=== PATIENT | male | born 1965 | race Caucasian/White ===

== ENCOUNTER → 2016-12-13 | Outpatient (CLI) | payer BC ==
[2016-12-13 11:59] LABS: EKG EKG PERFORMED
[2016-12-13 12:15] LABS: Basophils # (A) 0.1 k/uL (0-0.2); Basophils % (A) 1 %; CH 29.4; CHCM 33.9; Eosinophils # (A) 0.2 k/uL (0-0.7); Eosinophils % (A) 3 %; HCT 47.2 % (39.0-53.0); HDW 2.46; HGB 15.8 gm/dL (13.0-17.5); Luc # (Auto) 0.08; Luc % (Auto) 1; Lymphocytes # (A) 1.1 k/uL (1.0-4.8); Lymphocytes % (A) 18 %; MCH 29.1 pg (25.0-35.0); MCHC 33.4 g/dL (31.0-37.0); MCV 87.1 fL (80.0-100.0); Mean Platelet Volume 7.5; Monocytes # (A) 0.3 k/uL (0-1.0); Monocytes % (A) 5 %; Neutrophils # (A) 4.2 k/uL (1.3-7.7); Neutrophils % (A) 72 %; RBC 5.42 m/uL (4.30-5.90); RDW 12.9 % (11.5-15.5); WBC 5.9 k/uL (3.8-10.6); WBC (Perox) 6.22
[2016-12-13 12:27] LABS: Anion Gap 9 mmol/L; Carbon Dioxide 27 mmol/L (22-30); Chloride 102 mmol/L (98-107); Potassium 4.2 mmol/L (3.5-5.1); Sodium 138 mmol/L (137-145)
== END | disposition home or self-care (01) ==
LOC: LABWHC1 11:45
PROVIDERS: ATTEND Orthopaedic Surgery
DX: Z01.810 Encounter for preprocedural cardiovascular examination (principal); M23.92 Unspecified internal derangement of left knee
CPT/HCPCS: 80051; 85025; 93005

== ENCOUNTER 2016-12-24 09:22 | Day surgery (SDC) | payer BC ==
[2016-12-23 10:53] VITALS: BMI 28.1
--- NOTE | 2016-12-23 11:21 | HP ---
DATE OF ADMISSION: CHIEF COMPLAINT: Left knee pain. HISTORY OF PRESENT ILLNESS: The patient is a 51-year-old rodriguez who presents with progressive left knee pain after previously injuring it running. He is having pain and mechanical symptoms that limit him. He had a previous injection and has tried medications with only partial temporary relief. PAST MEDICAL HISTORY: Negative. PAST SURGICAL HISTORY: Significant for carpal tunnel release. CURRENT MEDICATIONS: 1. Tylenol. 2. Zyrtec. He denies drug allergies. FAMILY HISTORY: Significant for cancer. SOCIAL HISTORY: Negative for current tobacco or alcohol use. A 16-point review of systems otherwise reviewed and is noncontributory. On examination, the patient is approximately 5 foot 7, 185 pounds of mesomorphic habitus. HEENT exam is nonfocal. Neck is supple. He is nontender about the lumbar spine. He has painless passive motion of the left hip. On examination of his left knee, he is tender about the medial joint line and medial patellar facet. Collaterals are stable, Lissett is negative, Ben's elicits medial pain. Active motion -4 to 140 degrees of flexion. His distal neurovascular exam appears be intact in the left lower extremity. MRI report from 10/21/2016 the left knee shows a posterior medial meniscal tear along with patellofemoral compartment osteoarthrosis. IMPRESSION: 1. Left knee internal derangement with symptomatic medial meniscal tear. 2. Left knee patellofemoral compartment osteoarthrosis. RECOMMENDATIONS: I talked to the patient at length regarding his treatment options. He is having persistent pain and mechanical symptoms despite conservative measures. After a thorough discussion, he opts to proceed with surgery. We will plan to proceed with arthroscopic evaluation with possible partial medial meniscectomy, in addition to possible patellar chondroplasty. Risks and benefits are discussed at length in layman terms. We will likely perform that as an outpatient procedure.
[~2016-12-24 09:22] MED LIST: DEXAMETHASONE SOD PHOSPHATE 10 MG/ML 1 ML VIAL IV ONE; LACTATED RINGERS 1,000 ML IV SCH; MIDAZOLAM 2 MG/2 ML VIAL IV PRN; ONDANSETRON 4 MG/2 ML VIAL IVP ONE; SCOPOLAMINE 1.5MG/72HR PATCH TRANSDERM ONE; ceFAZolin 2 GM in SODIUM CHLORIDE 0.9% 100 ML IVPB ONE
[2016-12-24] MEDS ORDERED: LIDOCAINE 1% 20 ML VIAL (10MG/ML) FOR IV START INTRADERMA ONE (10:41)
[2016-12-24] MEDS ORDERED: LIDOCAINE 1% INJ 10MG/ML (20 ML MDV) ONE (11:14)
[2016-12-24] MEDS ORDERED: MIDAZOLAM 2 MG/2 ML VIAL ONE (11:14)
[2016-12-24] MEDS ORDERED: KETOROLAC 30 MG/ML 1 ML VIAL ONE (11:14)
[2016-12-24] MEDS ORDERED: PROPOFOL 10 MG/ML 20 ML VIAL IV ONE (11:14)
[2016-12-24] MEDS ORDERED: fentaNYL (PF) 50 MCG/ML 2 ML AMP ONE (11:14)
--- NOTE | 2016-12-24 11:58 | P.OP ---
Date of Procedure: 12/24/16 Preoperative Diagnosis: Left knee internal derangement Postoperative Diagnosis: Left knee posterior medial meniscal tear/grade 3 chondral injury femoral trochlea/reactive synovitis of the medial and patellofemoral compartments Procedure(s) Performed: Left knee arthroscopic partial medial meniscectomy/femoral trochlear chondroplasty/partial synovectomy of the medial and patellofemoral compartments Anesthesia: TIMA Surgeon: Naun Morales Estimated Blood Loss (ml): 10 Pathology: none sent Condition: stable Disposition: PACU Indications for Procedure: The patient's a 51-year-old male who presents with progressive left knee pain and mechanical symptoms after previous injury running. He did try conservative measures with persistence of his symptoms. A discussion of the risks and benefits of operative intervention versus continued conservative measures was made with patient. He opted to proceed with surgery. Operative risks to include infection, neurovascular injury, development of blood clots, possible incomplete resolution of symptoms, possible worsening symptoms and need for subsequent procedures was discussed. Informed consent was obtained. Operative Findings: As below Description of Procedure: The patient was brought to the operating room, and after induction of general anesthesia examined the left knee. Collaterals were stable, Lissett was negative, and posterior drawer was negative. The left lower extremity was prepped and draped in a normal fashion. A superior lateral portal was made through a 3 mm skin incision superior and lateral to the patella. This was used for outflow. A lateral portal was made through a 5 mm vertical skin incision lateral to the patellar tendon above the joint line. Diagnostic arthroscopy was performed. A medial portal was made through a similar incision medial to the patellar tendon above the joint line. On inspection of the medial compartment, he was noted have a longitudinal tear involving the posterior horn of the medial meniscus in the white/white junction. This is debrided back to stable base with straight baskets and a motorized shaver. The remaining medial meniscus was stable and intact. Minimal degenerative changes involving the medial compartment articular surface was noted. Reactive synovitis involving the medial compartment was debrided with motorized shaver. On inspection of the notch, the anterior cruciate ligament appeared to be intact. On inspection of the lateral compartment no significant meniscal or articular cartilage pathology was noted. On inspection of the patellofemoral articulation, grade 3/4 chondral changes were noted involving the femoral trochlea. There was a loose chondral fragment debrided with motorized shaver back to stable base. Reactive synovitis involving the patellofemoral articulation was debrided with motorized shaver. The gutters were clear debris. The knee was then thoroughly irrigated. The portals were closed with Steri-Strips. A sterile dressing was applied in addition to a compression stocking. The patient was awoken from general anesthesia and transferred to recovery room in good condition. Blood loss was estimated at 10 mL. No complications were incurred.
[2016-12-24 11:59] VITALS: TEMP 97
[2016-12-24] MEDS: HYDROmorphone 1 MG/ML 1 ML SYRINGE IVP PRN ×2 (12:09→12:17)
[2016-12-24 12:10] VITALS: RESP 16
[2016-12-24] MEDS ORDERED: HYDROcodone/APAP 5-325MG 1 EACH TAB PO ONE (13:34)
[2016-12-24 14:00] VITALS: BP 124/82; PULSE 73
== END 2016-12-24 14:18 | disposition home or self-care (01) ==
LOC: OR 09:22
PROVIDERS: ATTEND Orthopaedic Surgery
DX: S83.242A Other tear of medial meniscus, current injury, left knee, initial encounter (principal); X58.XXXA Exposure to other specified factors, initial encounter; Y93.02 Activity, running; M65.862 Other synovitis and tenosynovitis, left lower leg; M17.12 Unilateral primary osteoarthritis, left knee; M23.92 Unspecified internal derangement of left knee; Z72.0 Tobacco use; Z79.899 Other long term (current) drug therapy
CPT/HCPCS: 29881; J2250; J1100; J0690; J2405; J2001; J3010; J1885; J1170; J2704

== ENCOUNTER → 2017-06-27 | Outpatient (CLI) | payer BC ==
[2017-06-27 19:50] LABS: ALT 34 U/L (21-72); AST 23 U/L (17-59); Alkaline Phosphatase 68 U/L (38-126); Anion Gap 8 mmol/L; Blood Urea Nitrogen 15 mg/dL (9-20); Calcium 9.4 mg/dL (8.4-10.2); Carbon Dioxide 28 mmol/L (22-30); Chloride 104 mmol/L (98-107); Glucose 79 mg/dL (74-99); Non-African American GFR(MDRD) >60 (>60 ml/min/1.73 sqM); Potassium 4.7 mmol/L (3.5-5.1); Sodium 140 mmol/L (137-145); Total Bilirubin 0.5 mg/dL (0.2-1.3); Total Protein 6.5 g/dL (6.3-8.2); Uric Acid 5.5 mg/dL (3.5-8.5)
== END | disposition home or self-care (01) ==
LOC: MMGSC 09:47
PROVIDERS: ATTEND Family Medicine
DX: M10.9 Gout, unspecified (principal)
CPT/HCPCS: 36415; 80053; 84550

== ENCOUNTER → 2019-09-21 | Outpatient (CLI) | payer BC ==
--- NOTE | 2019-09-21 08:08 | MR ---
EXAMINATION TYPE: MR brain wo/w con DATE OF EXAM: 09/21/2019 COMPARISON: NONE HISTORY: Headache TECHNIQUE: Multiplanar, multisequence images of the brain and brainstem is performed without and with IV contras t, utilizing 9 mL intravenous Gadavist . FINDINGS: Diffusion weighted images demonstrate no evidence of a recent infarct or other diffusion ab normality. There is no extra-axial fluid collection or significant white matter signal abnormality. Single nonspecific 2 mm focus posterior right frontal lobe axial image 20 is noted. The ventricular system and cisternal spaces are normal in size and appearance. The brain volume is age appropriate. Midline structures demonstrate normal morphology. The craniocervical junction appears within normal limits. Post contrast images demonstrate no abnormal enhancement. The dural venous sinuses appear pa tent. There is mucous retention cyst or polyp in inferior right maxillary sinus with few additional s cattered smaller mucous retention cysts or polyps throughout the visualized portion of both maxillary sinuses. Mild mucosal thickening bilateral ethmoid sinuses. IMPRESSION: Some chronic paranasal sinus disease otherwise unremarkable study
== END | disposition home or self-care (01) ==
LOC: RADMRIMAIN 07:05
PROVIDERS: ATTEND Family Medicine
DX: R51 Headache (principal); H93.11 Tinnitus, right ear; J32.4 Chronic pansinusitis
CPT/HCPCS: 70553; A9585

== ENCOUNTER → 2020-12-24 | Outpatient (CLI) | payer BC ==
--- NOTE | 2020-12-24 22:12 | MR ---
EXAMINATION TYPE: MR knee RT wo con DATE OF EXAM: 12/24/2020 COMPARISON: Radiographs 12/12/2020. HISTORY: Right knee pain, swelling, and locking for 7 weeks due to skiing incident. TECHNIQUE: Multiplanar, multisequence imaging of the right knee is performed without IV contrast. FINDINGS: MEDIAL MENISCUS: Horizontal oblique tear of the medial meniscus posterior horn and body. LATERAL MENISCUS: Anterior and posterior horns are intact without tear. CRUCIATE LIGAMENTS: Near full-thickness tear of the anterior cruciate ligament at the femoral attachm ent. Posterior cruciate ligament is grossly intact COLLATERAL LIGAMENTS: Partial-thickness tear of the proximal medial collateral ligament. Moderate ten dinosis of the popliteal tendon. Otherwise lateral collateral ligament complex is grossly intact. EXTENSOR MECHANISM: Visualized quadriceps and patellar tendons are intact. EFFUSION: Small knee joint effusion. POPLITEAL CYST: No popliteal/whitman cyst. TRICOMPARTMENT SPACES: Mild to moderate tricompartmental osteoarthritis, most notable of the medial p atellofemoral compartments. CARTILAGE: Moderate to large full-thickness chondral defect overlying the patellofemoral compartment medial facet. Small to moderate sized partial thickness chondral defect overlying the medial compartm ent. No significant chondral defect of the lateral compartment. BONE MARROW SIGNAL: No significant bone marrow abnormality, acute fracture or dislocation. OTHER: Moderate edema in the Hoffa's fat pad. Moderate fluid with multiple small loose bodies within the popliteal bursae. IMPRESSION: Near full-thickness ACL tear at the femoral attachment. Medial meniscus posterior horn and body tear. Partial thickness tear/grade 2 sprain of the proximal MCL. Popliteal bursitis with loose bodies seen. Mild to moderate osteoarthritis. Edema within the Hoffa's fat pad, can be seen with patellar maltracking.
== END | disposition home or self-care (01) ==
LOC: RADMRIMAIN 18:38
PROVIDERS: ATTEND Orthopaedic Surgery
DX: S83.241A Other tear of medial meniscus, current injury, right knee, initial encounter (principal); M17.11 Unilateral primary osteoarthritis, right knee

== ENCOUNTER → 2021-01-08 | Outpatient (CLI) | payer BC ==
[2021-01-08 13:20] LABS: Basophils # (A) 0.1 k/uL (0-0.2); Basophils % (A) 1 %; Eosinophils # (A) 0.1 k/uL (0-0.7); Eosinophils % (A) 3 %; HCT 45.8 % (39.0-53.0); HGB 16.1 gm/dL (13.0-17.5); Lymphocytes # (A) 1.2 k/uL (1.0-4.8); Lymphocytes % (A) 23 %; MCH 29.6 pg (25.0-35.0); MCHC 35.1 g/dL (31.0-37.0); MCV 84.5 fL (80.0-100.0); Mean Platelet Volume 8.4; Monocytes # (A) 0.3 k/uL (0-1.0); Monocytes % (A) 6 %; Neutrophils # (A) 3.4 k/uL (1.3-7.7); Neutrophils % (A) 66 %; Platelet Count 265 k/uL (150-450); RBC 5.42 m/uL (4.30-5.90); RDW 12.2 % (11.5-15.5); WBC 5.2 k/uL (3.8-10.6)
[2021-01-08 13:37] LABS: Potassium 4.2 mmol/L (3.5-5.1)
== END | disposition home or self-care (01) ==
LOC: LABPAT 12:19
PROVIDERS: ATTEND Orthopaedic Surgery
DX: Z01.818 Encounter for other preprocedural examination (principal); M23.91 Unspecified internal derangement of right knee
CPT/HCPCS: 36415; 80051; 85025; 93005

== ENCOUNTER 2021-01-20 09:43 | Day surgery (SDC) | payer BC ==
--- NOTE | 2021-01-19 09:02 | HP ---
HISTORY AND PHYSICAL CHIEF COMPLAINT: Right knee pain. 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 He notes persistent medial pain and giving way. He also notes intermittent locking. He denies previous problems. He notes it limits him daily. PAST MEDICAL HISTORY: Negative. PAST SURGICAL HISTORY: Significant carpal tunnel release and left knee arthroscopy. CURRENT MEDICATIONS: Tylenol and Zyrtec. ALLERGIES: He denies drug allergies. FAMILY HISTORY: Significant for cancer. SOCIAL HISTORY: Negative for current tobacco or alcohol use. REVIEW OF SYSTEMS: Sixteen-point review of systems otherwise reviewed and is noncontributory. PHYSICAL EXAMINATION: On examination, the patient is approximately 5 feet, 7 inches, 190 pounds of mesomorphic habitus. HEENT exam is nonfocal. Neck is supple. He has painless passive motion of the right hip. Straight leg raise is negative. Active motion right knee -6 to 125 degrees of flexion. He has a mild effusion. He is tender about the medial joint line. Collaterals are stable, Lissett's 1+, Ben's is positive. His distal neurovascular exam appears intact in the right lower extremity. MRI report from 12/21/2020 shows evidence of a posterior medial meniscal tear along with MCL sprain, medial patellar chondral defect along with an ACL sprain. IMPRESSION: 1. Internal derangement, right knee with symptomatic medial meniscal tear. 2. Right knee ACL/MCL sprain. 3. Right knee medial patellar chondral injury. RECOMMENDATIONS: I talked to the patient at length regarding his condition and treatment options. At this point he is quite symptomatic and limited because of pain and mechanical symptoms after this acute injury. After thorough discussion, he opts to proceed with surgery. We will plan to proceed with arthroscopic evaluation with possible partial medial meniscectomy in addition to possible patellar chondroplasty. We will evaluate the integrity of ACL, however, not a plan on any acute reconstruction at this point. We will likely perform this as an outpatient procedure. Risks and benefits were discussed at length in layman's terms. MMODL / IJN: [id number] /
[2021-01-19 09:07] VITALS: BMI 28.8
[~2021-01-20 09:43] MED LIST changes: -DEXAMETHASONE SOD PHOSPHATE 10 MG/ML 1 ML VIAL IV ONE; +HYDROmorphone 0.5 MG/0.5 ML SYRINGE IVP PRN; -MIDAZOLAM 2 MG/2 ML VIAL IV PRN; -SCOPOLAMINE 1.5MG/72HR PATCH TRANSDERM ONE; -ceFAZolin 2 GM in SODIUM CHLORIDE 0.9% 100 ML IVPB ONE; +fentaNYL (PF) 50 MCG/ML 2 ML AMP IV PRN
[2021-01-20] MEDS ORDERED: DEXAMETHASONE SOD PHOSPHATE 4 MG/ML 1 ML VIAL IVP ONE (10:30)
[2021-01-20] MEDS ORDERED: fentaNYL (PF) 50 MCG/ML 2 ML AMP ONE (11:38)
[2021-01-20] MEDS ORDERED: LIDOCAINE 1% INJ 10MG/ML (20 ML MDV) ONE (11:38)
[2021-01-20] MEDS ORDERED: MIDAZOLAM 2 MG/2 ML VIAL ONE (11:38)
[2021-01-20] MEDS ORDERED: PROPOFOL 10 MG/ML 20 ML VIAL IV ONE (11:38)
[2021-01-20] MEDS ORDERED: EPINEPHrine (PF) 1 ML in SODIUM CHLORIDE 0.9% IRRIGATIO 3,000 ML IRRIGATION ONE ×4 (11:54)
--- NOTE | 2021-01-20 12:45 | P.OP ---
Date of Procedure: 01/20/21 Preoperative Diagnosis: Right knee internal derangement Postoperative Diagnosis: Right knee posterior medial meniscal tear/middle one third lateral meniscal tear Procedure(s) Performed: Right knee arthroscopic partial medial meniscectomy/partial lateral meniscectomy Anesthesia: NELY Surgeon: Naun Morales Estimated Blood Loss (ml): 10 Pathology: none sent Condition: stable Disposition: PACU Indications for Procedure: The patient is a 55-year-old male presents with progressive right knee pain and mechanical symptoms after a previous injury despite attempted conservative measures. A discussion of the risks and benefits of operative intervention versus continued conservative measures was made with patient. He opted to proceed with surgery. Operative risks to include infection, neurovascular injury, development of blood clots, possible incomplete resolution of symptoms, possible worsening symptoms and need for subsequent procedures was discussed. Informed consent was obtained. Operative Findings: As below Description of Procedure: The patient was brought to the operating room, and after induction of general anesthesia examined the right knee. Collaterals were stable, Lissett was negative, and posterior drawer was negative. The right lower extremity was prepped and draped in a normal fashion. A superior lateral portal was made through a 3 mm skin incision superior and lateral to the patella. This was used for outflow. A lateral portal was made through a 5 mm vertical skin incision lateral to the patella tendon above the joint line. Diagnostic arthroscopy was performed. On inspection of the medial compartment, and oblique tear involving the posterior horn of the medial meniscus in the white-red junction was noted. This was debrided back to stable base with straight baskets and a motorized shaver. The remaining medial meniscus was stable and intact. Grade 2 chondral changes were noted diffusely in the medial compartment. On inspection of the notch, the anterior cruciate ligament appeared to be grossly intact. There was a small loose body adherent to the anterior synovium that was removed and it measured 4 x 5 mm. On inspection of the lateral compartment, and oblique tear involving the middle one third of the lateral meniscus in the white-white junction was noted. On inspection of the patellofemoral articulation, there were grade 2-3 chondral changes however no loose chondral fragments. The gutters were clear debris. The knee was then thoroughly irrigated. The portals were closed with Steri-Strips. A sterile dressing was applied in addition to a compression stocking. The patient was awoken from general anesthesia and transferred to recovery room in good condition. Blood loss was estimated at 10 mL. No complications were incurred.
[2021-01-20 12:52] VITALS: TEMP 97
[2021-01-20 13:01] VITALS: RESP 16
[2021-01-20] MEDS ORDERED: HYDROcodone/APAP 5-325MG 1 EACH TAB ONE (13:28)
[2021-01-20] MEDS ORDERED: HYDROcodone/APAP 5-325MG 1 EACH TAB PO ONE (13:29)
[2021-01-20 13:54] VITALS: BP 129/87; PULSE 69
== END 2021-01-20 14:10 | disposition home or self-care (01) ==
LOC: OR 09:43
PROVIDERS: ATTEND Orthopaedic Surgery
DX: S83.241A Other tear of medial meniscus, current injury, right knee, initial encounter (principal); S83.281A Other tear of lateral meniscus, current injury, right knee, initial encounter; M23.41 Loose body in knee, right knee; S89.81XA Other specified injuries of right lower leg, initial encounter; Z98.890 Other specified postprocedural states; Z79.899 Other long term (current) drug therapy; Z91.018 Allergy to other foods; Z80.9 Family history of malignant neoplasm, unspecified; X58.XXXA Exposure to other specified factors, initial encounter
CPT/HCPCS: 29880; J2250; J1100; J0690; J2405; J0171; J2001; J3010; J2704